=== PATIENT | male | born 1980 | race Two or more races ===

== ENCOUNTER 2018-07-02 00:49 | Emergency (ER) | payer OTHER ==
[~2018-07-02] VITALS: Ht 170.2 cm; Wt 131.5 kg
[2018-07-02] MEDS ORDERED: COZAAR50 MG PO (01:00)
[2018-07-02] MEDS ORDERED: NIFE60TA3 PO (01:00)
[2018-07-02] MEDS ORDERED: METFORMIN HCL1000 M1 PO (01:02)
[2018-07-02] MEDS ORDERED: KETO10TA2 PO (07:22)
== END 2018-07-02 12:33 | disposition home or self-care (01) ==
LOC: ER 00:49 → CPU-OBS 00:51 → ER 00:51
DX: R07.89 Other chest pain (principal); M94.0 Chondrocostal junction syndrome [Tietze]
CPT/HCPCS: G0378; G0379; 93005

== ENCOUNTER 2023-05-20 14:36 | Outpatient (CLI) | payer OTHER ==
[~2023-05-20 14:36] MED LIST: COZAAR50 MG PO; KETO10TA2 PO; METFORMIN HCL1000 M1 PO; NIFE60TA3 PO
[2023-05-20 15:18] LABS: ABG PH 7.415 (7.35-7.45); ABG PO2 82.6 mmHg (80-100); ABG pCO2 43.4 mmHg (35-45); BASE EXCESS 2.2 mmol/l; BICARBONATE 27.2 mmol/l (23-25); SaO2 96.3 %; Tco2 28.5 mmol/l; allen test SATISFACTORY; o2 21 %; puncture site RADIAL RIGHT
== END 2023-05-20 14:38 | disposition home or self-care (01) ==
LOC: LAB 14:36
DX: R09.2 Respiratory arrest (principal)